=== PATIENT | female | born 1975 | race Two or more races ===

== ENCOUNTER → 2025-03-20 | Emergency (ER) | payer OTHER ==
[~2025-03-20] VITALS: Ht 160 cm; Wt 61.2 kg
[~2025-03-20] MED LIST: ACETAMINOPHEN 500 MG GEL..CAP PO ONE; ACETAMINOPHEN 500 MG GEL..CAP PO PRN; CETIRIZINE HCL 10 MG TABLET PO ONE; FAMOTIDINE/PF 20 MG in 0.9 % SODIUM CHLORIDE 8 ML IV PUSH ONE; FAMOTIDINE/PF 20 MG/2 ML VIAL ONE; GUAIFEN/DEXTROMETHORPHAN/PE 10 ML BLIST.PACK PO ONE; GUAIFEN/DEXTROMETHORPHAN/PE 10 ML BLIST.PACK PO SCH; IPRATROPIUM BROMIDE 0.5 MG/2.5 ML AMPUL.NEB IH SCH; IPRATROPIUM/ALBUTEROL SULFATE 3 ML AMPUL.NEB IH ONE; IPRATROPIUM/ALBUTEROL SULFATE 3 ML AMPUL.NEB IH SCH; LEVALBUTEROL HCL 1.25 MG/3 ML SOLUTION IH SCH; MAGNESIUM SULFATE 1,000 MG in 0.9 % SODIUM CHLORIDE 50 ML IV ONE; MAGNESIUM SULFATE 50% 1,000 MG/2 ML VIAL ONE; METHYLPREDNISOLONE SOD SUCC 125 MG VIAL IV ONE; METHYLPREDNISOLONE SOD SUCC 125 MG VIAL ONE; METHYLPREDNISOLONE SOD SUCC 40 MG VIAL IV SCH; MONTELUKAST SODIUM 10 MG TABLET PO SCH; levoFLOXacin IN DEXTROSE 5 % 150 ML IV SCH
[2025-03-20 11:32] LABS: BASO % 0.5 % (0.1-1.2); EOS # 0.05 (0.04-0.54); EOS % 0.4 % (0.7-7.0); LYMPH # 1.22 (1.18-3.74); LYMPH % 10.1 % (19.3-53.1); MEAN PLATELET VOLUME 10.20 fl (9.4-12.4); MONO # 1.19 (0.24-0.82); MONO % 9.9 % (4.7-12.5); NEUT # 9.47 (1.56-6.13); NEUT % 78.9 % (34.0-71.1); RED CELL DISTRIBUTION WIDTH 12.2 % (11.6-14.4)
[2025-03-20 12:06] LABS: ALT/SGPT 61.0 U/L (12-78); AST/SGOT 48.0 U/L (15-37); BILIRUBIN TOTAL 0.58 mg/dL (0.3-1.2); BUN CREA RATIO 18.0 (7.0-25.0); CREATININE SERUM 0.68 mg/dL (0.55-1.02); GFR 92.35; GLOBULINA 3.9 G/DL (2.4-3.5); GLUCOSE FASTING 97.0 mg/dL (65-100); OSMOLALITY SERUM 283.0 MOSM/KG (275-295)
[2025-03-20 13:13] LABS: COVID-19 AG NEGATIVE (NEGATIVE)
== END | disposition left against medical advice (07) ==
LOC: ER 10:27
PROVIDERS: General Practice
DX: J45.901 Unspecified asthma with (acute) exacerbation (principal); Z88.0 Allergy status to penicillin; Z91.013 Allergy to seafood; Z20.822 Contact with and (suspected) exposure to COVID-19